=== PATIENT | male | born 1950 | race Caucasian/White ===

== ENCOUNTER 2024-03-26 02:35 | Observation (INO) | payer MEDICARE, OTHER, SELFPAY ==
[2024-03-25 16:30] VITALS: BP 136/79
--- NOTE | 2024-03-25 16:37 | ED.GENMED ---
ED Provider Triage
<Slava Banerjee PA-C - Last Filed: 03/25/24 16:38>
-
Patient seen by provider in Triage?: Seen in Triage
74-year-old male presents for evaluation of right leg swelling. He had ablation done about 2 weeks ago [facility]. He is on Eliquis. He notes persistent swelling to the right groin with hematoma but no increased swelling to the
lower leg.
Patient is stable at triage. Will check basic labs secondary to possible bleeding. Concern for leaking access site at site of ablation versus settling hematoma versus DVT although unlikely because he is anticoagulated ultrasound of groin and leg
ordered
Patient evaluated by medical provider triage. Warrants further assessment
History of Present Illness
<Slava Banerjee PA-C - Last Filed: 03/25/24 16:38>
General
Chief Complaint: DVT/Possible Blood Clot
Time Seen by Provider: 03/25/24 19:26
<Elisabeth Pearce MD - Last Filed: 03/26/24 00:25>
History of Present Illness
History of Present Illness:
Patient is a 74-year-old man with history of A-fib on Eliquis presenting to the emergency department with a hematoma to his groin. Patient states that 2 weeks ago at [facility] Dr. Hanson did a ablation. They accessed through his femoral vein on the
right side. He did have a hematoma shortly after the procedure that was controlled with pressure. He states that when he was discharged she had a few other hematomas. He did have a ultrasound last week that showed hematoma to be 4 cm. He states
that since then the hematoma has been progressing. He also notes that his entire leg has been more swollen. He has been compliant with his Eliquis. Given the ongoing swelling expanding hematoma patient came to the emergency department for further
evaluation
Phy Exam
<Elisabeth Pearce MD - Last Filed: 03/26/24 00:25>
Physical Exam
Physical Exam:
GENERAL: in no acute distress
HEENT: normocephalic, extraocular movements intact, moist oral mucosa
NECK: normal inspection
RESPIRATORY: no respiratory distress
CARDIOVASCULAR: regular rate and rhythm
ABDOMEN/: soft, non-distended, non-tender to palpation, no rebound or guarding
EXTREMITIES: Right groin with hematoma about 7 cm long with no palpable pulsation, right lower extremity with diffuse swelling
NEUROLOGIC: awake and alert, moves all extremities
SKIN: warm
Course
<Slava Banerjee PA-C - Last Filed: 03/25/24 16:38>
Orders/Labs/Results
Orders:
Orders
03/25/24 16:36
US Groin (Imaging Only) RT Urgent
Comment:
Reason For Exam: swelling, recent ablation
Venous Doppler Lwr Ext Rt [US Periph Venous LOWER Ext RT] Urgent
Comment:
Reason For Exam: swelling
03/25/24 16:41
Complete Blood Count/With Diff Urgent
Comprehensive Metabolic Panel Urgent
03/25/24 21:43
CT Lower Ext W/iv Cont Rt Urgent
Reason For Exam: right groin hematoma expanding
Abnormal Lab Results
03/25/24
16:41
RBC 4.04 L 10^6/uL
(4.70-6.10)
Hgb 12.7 L g/dL
(13.0-18.0)
Hct 36.2 L %
(39.0-52.0)
MCH 31.4 H pg
(27.0-31.0)
Absolute Lymphs (auto) 0.8 L 10^3/uL
(1.2-3.4)
Neutrophils % 77.1 H %
(42.2-75.2)
Lymphocytes % 13.9 L %
(20.5-51.1)
Total Protein 6.2 L g/dl
(6.3-8.2)
03/25/24 16:41
03/25/24 16:41
Vital Signs
Initial and Last Documented VS:
Initial Vital Signs
Temp Pulse Resp BP Pulse Ox
98 F 60 19 136/79 100
03/25/24 16:30 03/25/24 16:30 03/25/24 16:30 03/25/24 16:30 03/25/24 16:30
Last Documented Vital Signs
Temp Pulse Resp BP Pulse Ox
98 F 60 19 136/79 100
03/25/24 16:30 03/25/24 16:30 03/25/24 16:30 03/25/24 16:30 03/25/24 20:18
<Elisabeth Pearce MD - Last Filed: 03/26/24 00:25>
Orders/Labs/Results
Orders:
Orders
03/25/24 16:36
US Groin (Imaging Only) RT Urgent
Comment:
Reason For Exam: swelling, recent ablation
Venous Doppler Lwr Ext Rt [US Periph Venous LOWER Ext RT] Urgent
Comment:
Reason For Exam: swelling
03/25/24 16:41
Complete Blood Count/With Diff Urgent
Comprehensive Metabolic Panel Urgent
03/25/24 21:43
CT Lower Ext W/iv Cont Rt Urgent
Reason For Exam: right groin hematoma expanding
Abnormal Lab Results
03/25/24
16:41
RBC 4.04 L 10^6/uL
(4.70-6.10)
Hgb 12.7 L g/dL
(13.0-18.0)
Hct 36.2 L %
(39.0-52.0)
MCH 31.4 H pg
(27.0-31.0)
Absolute Lymphs (auto) 0.8 L 10^3/uL
(1.2-3.4)
Neutrophils % 77.1 H %
(42.2-75.2)
Lymphocytes % 13.9 L %
(20.5-51.1)
Total Protein 6.2 L g/dl
(6.3-8.2)
03/25/24 16:41
03/25/24 16:41
Vital Signs
Initial and Last Documented VS:
Initial Vital Signs
Temp Pulse Resp BP Pulse Ox
98 F 60 19 136/79 100
03/25/24 16:30 03/25/24 16:30 03/25/24 16:30 03/25/24 16:30 03/25/24 16:30
Last Documented Vital Signs
Temp Pulse Resp BP Pulse Ox
98 F 60 19 136/79 100
03/25/24 16:30 03/25/24 16:30 03/25/24 16:30 03/25/24 16:30 03/25/24 20:18
<Elisabeth Pearce MD - Last Filed: 03/26/24 00:25>
MDM/Problems Addressed
Differential Diagnosis Includes:
Patient is a 74-year-old male with history of A-fib on Eliquis status post ablation that was accessed through the right femoral vein presenting to the emergency department with worsening hematoma and right lower extremity swelling. On exam patient
with palpable hematoma with no pulsation. Patient did draw a line where it was a few days ago and is expanding. Patient did obtain ultrasound prior to evaluation which does show hematoma that is about 7 x by 2 x 7 cm. This is larger than the
initial hematoma measured on March 18 per patient's records. After discussion with radiologist will obtain CT pelvis for any active bleeding.
<Elisabeth Pearce MD - Last Filed: 03/26/24 00:25>
*Critical Care Note
Total Time (30-74mins, 75-104mins- exclusive of procedures): Not Applicable
<Elisabeth Pearce MD - Last Filed: 03/26/24 00:25>
Update Note
Update Note:
CT pelvis with no active bleeding. Given patient is on Eliquis and the hematoma is larger than what it was last week after shared decision making we will admit for observation. I did outline the size of the hematoma. Discussed with hospitalist
who accepted patient to their service
ED Attending Note
<Slava Banerjee PA-C - Last Filed: 03/25/24 16:38>
-
Portions of this chart may have been created with voice recognition software.� Occasional wrong word or��sound alike� substitutions may have occurred due to the inherent limitations of voice recognition software.
Discharge Plan
Departure
Patient Disposition: Admit
Date of Disposition: 03/26/24
Time of Disposition: 00:23
Presentation/result/management discussed w/ accepting MD/DO: Hospitalist
Discharge Problem:
Hematoma
Prescriptions:
No Action
Eliquis 5 mg tablet
5 mg PO BID Qty: 60 0RF
metoprolol succinate 25 mg tablet extended release 24 hr
25 mg PO DAILY Qty: 30 0RF
Referrals:
Nestor Lawson MD [Family Provider] -
Interventions
Interventions:
*Risk Screen - Suicide Last Done: 03/25/24 16:30
*General Assessment Last Done: 03/25/24 16:30
*Neglect/Abuse Screening Last Done: 03/25/24 16:30
ED- Cardiac Assessment Last Done: 03/25/24 20:18
ED- Pulmonary Assessment Last Done: 03/25/24 20:18
ED-Peripheral Vascular Assessment Last Done: 03/25/24 20:18
ED-Skin Assessment Last Done: 03/25/24 20:18
Discharge Date and Time
Print Language: JORDANIAN
[2024-03-25 16:56] LABS: % Basophils 0.8 % (0-2); % Immature Granulocytes 0.3 % (0-0.5); % Lymphocytes 13.9 % (20.5-51.1); % Monocytes 6.9 % (1.7-9.3); % Neutrophils 77.1 % (42.2-75.2); Absolute Basophils 0.1 10^3/uL (0-0.2); Absolute Eosinophils 0.1 10^3/uL (0-0.7); Absolute Lymphocytes 0.8 10^3/uL (1.2-3.4); Absolute Monocytes 0.4 10^3/uL (0.1-0.6); Absolute Neutrophils 4.7 10^3/uL (1.4-6.5); Hematocrit 36.2 % (39.0-52.0); Hemoglobin 12.7 g/dL (13.0-18.0); Mean Corp Hgb Conc. 35.1 g/dL (33.0-37.0); Mean Corpuscular Hgb 31.4 pg (27.0-31.0); Mean Corpuscular Volume 89.6 fL (80.0-94.0); Mean Platelet Volume 9.1 fL (7.4-10.4); Nucleated Red Blood Cells % 0 % (-); Platelet Count 217 10^3/uL (130-400); Red Blood Cell Count 4.04 10^6/uL (4.70-6.10); Red Cell Dist. Width 13.7 % (11.5-14.5); White Blood Cell Count 6.1 10^3/uL (4.8-10.8)
[2024-03-25 17:10] LABS: ALT (SGPT) 20 U/L (0-50); AST (SGOT) 26 U/L (17-59); Albumin 4.1 g/dl (3.5-5.0); Alkaline Phosphatase 65 U/L (38-126); Blood Urea Nitrogen 14 mg/dl (9-20); Carbon Dioxide 30 mmol/L (22-30); Chloride 102 mmol/L (98-107); Glucose 94 mg/dl (70-99); Potassium 4.4 mmol/L (3.5-5.1); Sodium 137 mmol/L (135-145); Total Bilirubin 1.2 mg/dl (0.2-1.3); Total Protein 6.2 g/dl (6.3-8.2); eGFR > 60.00
--- NOTE | 2024-03-26 02:25 | HPS.HSE ---
Family Physician
-
Family Physician: Nestor Lawson
Chief Complaint
-
R Groin Pain / Fullness
History of Present Illness
Patient is a 74y M with PMH significant for A-Fib who presents to ED complaining of R groin pain, swelling and fullness. Patient states that he underwent PVI ablation at [facility] on 03/10/[address] Hanson. He states that he experienced some R
groin bleeding / hematoma following the procedure and had pressure device in place for some time post-op. He has since been monitoring this region and has noted persistent / worsening fullness and tenderness in the R groin. He has continued to
take Eliquis for his A-Fib and took his most recent dose this evening.
Patient states that his EP team recommended an US to evaluate the area about one week ago.
He went to a same day center in [place] where he had an US showing two R groin collections measuring 4.5 x 1.4 x 1.7 and 4.5 x 1.8 x 4.4 respectively.
He spoke with the EP team again today and noted his concerns for ongoing fullness and was advised to present to the ED for further evaluation.
He has also noted generalized edema in the entire RLE with some associated stiffness and discomfort. He has ecchymosis in the R groin / suprapubic area and extending into the medial thigh / posterior knee.
His regular [employer] Install[employer] is Dr. Silveira at [facility] in [place].
Medical History
Past Medical History
Past Medical History: Reports Other
Additional Past Medical History:
Paroxysmal Atrial Fibrillation
Past Surgical History: Reports Other
Additional Past Surgical History:
PVI Ablation (03/10/24)
Bilateral GABY
Lumbar Discectomies (x 2)
Social History
Tobacco: Non-smoker
Alcohol: None
Drug: None
Family History
Family History: Not pertinent
Allergies / Home Medications
Allergies reflects when Allergies were last updated in [facility].
Home Medications with original date entered in [facility]
Allergy/Medication List:
Allergies
Allergy/AdvReac Type Severity Reaction Status Date / Time
No Known Allergies Allergy Unverified 02/04/22 16:25
Home Medications
apixaban 5 mg tablet (Eliquis) 5 mg PO BID #60 tabs 02/04/22
cholecalciferol (vitamin D3) 50 mcg (2,000 unit) tablet 50 mcg PO DAILY 03/26/24
metoprolol succinate 25 mg tablet,extended release 24 hr 12.5 mg PO DAILY 03/26/24
Review of Systems
-
History Source: Patient
A 12 point ROS was completed and negative except as noted: Yes
Constitutional: Denies Fever or Chills
Respiratory: Denies Cough or Trouble Breathing
Cardiac: Denies Chest Pain or Palpitations
Abdomen/GI: Denies Abdominal Pain, Nausea, Vomiting or Diarrhea
: Denies Dysuria, Frequency or Bleeding
Musculoskeletal: Reports Edema
Neurological: Denies Dizzy or Headache
Hematologic/Lymphatic: Reports Bruising and Other (Groin swelling / hematoma.)
Physical Exam
Vital Signs
Vital Signs
Temp Pulse Resp BP Pulse Ox
98 F 60 19 136/79 100
03/25/24 16:30 03/25/24 16:30 03/25/24 16:30 03/25/24 16:30 03/25/24 20:18
Physical Exam
General: Other (74y M in no acute distress.)
HEENT: Moist mucous membranes and PERRLA
Respiratory: Clear; No Wheezes, Rales or Rhonchi
Cardiac: S1/S2 and Regular Rhythm; No Murmur
GI: Soft, Non Tender, Non Distended and Normal Bowel Sounds
Musculoskeletal: No Clubbing, No Cyanosis and Other (Trace edema RLE.)
Skin: Other (Hematoma / fullness in the R groin - ovoid in shape. No fluctuance. Mild tenderness. Ecchymosis across suprapubic region and along medial thigh.)
Neuro: AO x 3
Laboratory Results
-
03/25/24 16:41
03/25/24 16:41
Laboratory Results
Total Bilirubin 1.2 mg/dl (0.2-1.3) 03/25/24 16:41
AST 26 U/L (17-59) 03/25/24 16:41
ALT 20 U/L (0-50) 03/25/24 16:41
Alkaline Phosphatase 65 U/L (38-126) 03/25/24 16:41
Impression/Plan
-
A/P: Patient is a 74y M with PMH significant for A-Fib who presents to ED for evaluation of post-procedural R groin hematoma following PVI ablation on 03/10/24 at outside institution.
Right Groin Hematoma
- Observe overnight for further evaluation and treatment.
- Reviewed US report (on patient phone).
- Difficult to compare without images; however - previously described two hematomas now described as 'bilobed' but single hematoma.
- Suspect there is no actual / significant increase in size. No active bleeding appreciated on CT.
- Follow overnight for any increase in size.
- Would hold Eliquis acutely given prolonged / ongoing issues now 2 weeks s/p procedure.
- Will ask Cardiology for their input.
Paroxysmal Atrial Fibrillation
- s/p PVI ablation on 03/10/24.
- Currently has Zio patch in place.
- Follow-up with Cardiology at [facility] / [place] and EP at [facility].
- Continue metoprolol with holding parameters.
DVT Prophylaxis: SCDs. US done today with no evidence of DVT.
Code Status: Full
[2024-03-26 03:30] VITALS: BP 127/70
[2024-03-26 05:55] LABS: Hematocrit 35.6 % (39.0-52.0); Hemoglobin 12.6 g/dL (13.0-18.0); Mean Corp Hgb Conc. 35.4 g/dL (33.0-37.0); Mean Corpuscular Hgb 31.9 pg (27.0-31.0); Mean Corpuscular Volume 90.1 fL (80.0-94.0); Mean Platelet Volume 9.3 fL (7.4-10.4); Platelet Count 209 10^3/uL (130-400); Red Blood Cell Count 3.95 10^6/uL (4.70-6.10); Red Cell Dist. Width 13.6 % (11.5-14.5); White Blood Cell Count 5.3 10^3/uL (4.8-10.8)
[2024-03-26 06:22] LABS: Blood Urea Nitrogen 15 mg/dl (9-20); Calcium 9.9 mg/dl (8.4-10.2); Carbon Dioxide 27 mmol/L (22-30); Chloride 103 mmol/L (98-107); Glucose 84 mg/dl (70-99); Sodium 135 mmol/L (135-145); eGFR > 60.00
[2024-03-26 08:00] VITALS: BP 125/77
[2024-03-26 08:04] VITALS: BMI 23.5
[2024-03-26] MEDS: TOPROL XL PO (09:58)
--- NOTE | 2024-03-26 12:02 | CON.CAR ---
Addendum entered and electronically signed by Emery Loyd MD 03/26/24 14:50:
I saw and examined the patient.
The WEDGER MACHINE's note was reviewed and I agree with the note.
Comment: Discussed case with [facility] monitor Hgb and hematoma.
Original Note:
Consultation
Consultation Request
Date/Time Consultation Requested: 03/26/2024 05:30
Date/Time Consultation Performed: 03/26/2024 11:25
Requesting Provider: Dr. Deng
Performing Provider: KEITH Lorenz for Dr. Loyd
Reason for Consultation: Right groin hematoma
Medical History
-
Chief Complaint: Right thigh swelling
History of Present Illness:
Jose Mott is a 74-year-old male known to his primary b2b appointment setter, Dr. Silveira at [facility] ([place] with paroxysmal atrial fibrillation and dyslipidemia who had a PVI with Dr. Hanson at [facility] 03/10/2024. While he was in
preprocedure holding, he went into atrial fibrillation. He is not sure whether or not he was cardioverted during the procedure. He held a dose of apixaban the morning of the procedure as directed. He has not had any missed doses of apixaban since
the procedure. The patient reports he had a postprocedure right groin hematoma. Initially manual pressure was used then it was transitioned to a sandbag. He had what sounds like a FemoStop for approximately 4 hours. He had an ultrasound prior to
discharge that did not show a hematoma and he was discharged home.
Records have been requested.
Past Medical History
Past Medical History: Arrhythmias (Paroxysmal atrial fibrillation) and Hypercholesterolemia
Past Surgical History: Orthopedic
Social History
Tobacco: Non-Smoker
Alcohol: Occasional (Social, vacation)
Drug: None
Employment: Retired (Software)
Family History
Family History: Reviewed & Not Pertinent
Allergies / Home Medications
Allergy/AdvReac Type Severity Reaction Status Date / Time
No Known Allergies Allergy Unverified 02/04/22 16:25
�Medication �Instructions �Recorded �Confirmed �Type
apixaban 5 mg tablet (Eliquis) 5 mg PO BID #60 tabs 02/04/22 03/26/24 Rx
cholecalciferol (vitamin D3) 50 50 mcg PO DAILY Supplement 03/26/24 03/26/24 History
mcg (2,000 unit) tablet
metoprolol succinate 25 mg 12.5 mg PO DAILY heart rate 03/26/24 03/26/24 History
tablet,extended release 24 hr
Review of Systems
-
History Source: Patient
All other systems: Negative unless noted
Constitutional: No Symptoms
EENT: No Symptoms
Respiratory: No Symptoms
Cardiac: No Symptoms
Abdomen/GI: No Symptoms
: No Symptoms
Musculoskeletal: Joint Swelling and Muscle Stiffness
Skin: No Symptoms
Neurological: No Symptoms
Endocrine: No Symptoms
Hematologic/Lymphatic: Bruising
Physical Exam
Vital Signs
Temp Pulse Resp BP Pulse Ox
97.7 F 60 16 125/77 98
03/26/24 08:00 03/26/24 08:00 03/26/24 08:00 03/26/24 08:00 03/26/24 08:12
Lab Results
03/26/24 05:37
03/26/24 05:37
Physical Exam
General: Well Developed, Well Nourished, No Apparent Distress and Comfortable
HEENT: Normocephalic and Anicteric
Respiratory: Non Labored Respirations
Cardiac: S1/S2 and Regular Rhythm; Negative Peripheral Edema
Breast: Deferred by me
GI: Soft, Non Tender, Non Distended and Normal Bowel Sounds
Rectal: Deferred by Provider
Genito-urinary: No Costovertebral Tender
Musculoskeletal: No Clubbing, No Cyanosis and No Edema
Skin: Warm and Dry
Neuro: AO x 3
Hematologic/Lymphatic: No Lymphadenopathy
Psych: Calm
Impression / Plan
-
IMPRESSION/PLAN: 74M with paroxysmal atrial fibrillation dyslipidemia presented with hematoma after PVI by Dr. Hanson 03/10/2024
Primary Professional Development Manager: Dr. Silveira ([facility])
Right groin hematoma
-Hemoglobin stable at 12.6
-CT: Fluid collection in the right groin measuring 6.4 x 3.1 x 6.7 cm from superior to inferior, bilobed in configuration, anterior to proximal R SFA
-Consult Vascular surgery
Paroxysmal atrial fibrillation
-PVI 03/10/[address] Hanson ([place])
-He may have had DCCV on the date on his ablation, records requested
-Oral Anticoagulation: Apixaban 5mg BID, no missed doses since ablation
-[id number]: score 1 (age 65-74)
Dyslipidemia, not on medical therapy, followed by primary b2b appointment setter
--- NOTE | 2024-03-26 12:02 | W.PN.HOSP.TC ---
Today's Communication/Plan
-
see plan
Assessment / Plan
Assessment / Plan
74y M with PMH significant for A-Fib who presents to ED for evaluation of post-procedural R groin hematoma following PVI ablation on 03/10/24 at outside institution.
Gen: NAD, AAOx3.
Eyes: EOMI, PERRLA, no scleral icterus.
Neck: supple.
CV: RRR, +S1/S2, no m/r/g. R medial groin hematoma with surrounding ecchymoses, no bruits, 2+ R DP pulse
Resp: CTAB, no rales, wheezes, or rhonchi.
Abd: +BS, soft, NT, ND
Skin: No rashes. R medial groin hematoma with surrounding ecchymoses, no bruits, 2+ R DP pulse
Neuro: CN 2-12 intact, non-focal.
Psych: Normal mood and affect.
RLE venous U/S: No evidence of DVT of the right lower extremity.
R groin U/S: Mildly complex fluid collection at the area of concern, probably a hematoma.
CT RLE: Right groin fluid collection
Right Groin Hematoma:
-Hb stable
-c/s vascular
-Eliquis contributed to hematoma and is on hold
Paroxysmal Atrial Fibrillation:
-s/p PVI ablation on 03/10/24.
-Currently has Zio patch in place.
-Follow-up with Cardiology at [facility] / [place] and EP at [place].
-Continue BB
FULL/SCDs
Anticipated Discharge: Within 24 hours
Subjective/Interval History
-
Date of Service: March 26, 2024
No new complaints.
Objective Data
-
Labs:
Laboratory Results
03/26/24
05:37
WBC 5.3
Hgb 12.6 L
Hct 35.6 L
Plt Count 209
Sodium 135
Potassium 4.0
Chloride 103
Carbon Dioxide 27
BUN 15
Creatinine 1.0
Glucose 84
Calcium 9.9
Vital Signs:
Vital Signs
Temp Pulse Resp BP Pulse Ox
97.7 F 60 16 125/77 98
03/26/24 08:00 03/26/24 08:00 03/26/24 08:00 03/26/24 08:00 03/26/24 08:12
--- NOTE | 2024-03-26 13:40 | W.PN.UPDATE ---
Update Note
Progress Note Update
Seen and evaluated with TEVIN Epps. Full consultation to follow. Briefly 74-year-old male status post recent EP ablation procedure done at the [facility] performed about 15 days ago. Transvenous access through the right groin. Per
patient and his , it was complicated by postprocedural hematoma in the right groin. Required additional pressure to be placed, manual and otherwise (sandbag). Noted vigorous/hard manual compression in the right groin. He underwent ultrasound
the following morning and per their report did not show any significant hematoma or findings. Therefore was discharged home. Patient now returns with worsened complaints of swelling and discomfort in his right thigh and calf. He still has some
discomfort in his right groin, but he is not really bothered by that and he notes that that has not changed. His biggest complaint was swelling and tightness in his right leg and when he tries to flex his knee it bothers him some. Denies any prior
lower extremity revascularization procedures. No history of DVTs.
On exam/he is awake and alert. Head is normocephalic and atraumatic. Eyes are anicteric. Neck is soft without jugular venous distention. Breathing is unlabored. Abdomen is soft. Right groin with some ecchymosis. There is a hematoma palpable
in the groin but it is relatively small and soft. No pulsatile mass. No palpable thrill. He has bruising/ecchymosis that extends from the groin down medially on the thigh towards the knee. Tracks along either the sartorius muscle or the
saphenous vein bed. He has tenderness when I squeeze that area (unclear from squeezing the sartorius muscle or the saphenous vein bed). However it is soft. There is no pulsatile mass anywhere along that course. His thigh and calf are soft. No
significant edema in the thigh. Mild edema in the calf but it is very soft. No tenderness or tightness in the calf.
Ultrasound reviewed. No evidence of pseudoaneurysm or AV fistula.
CT scan reviewed. To my interpretation of the images there is a hematoma in the right groin as measured by the radiologist report. There is no evidence of active extravasation. It almost looks like a bilobed hematoma with the greater saphenous
vein in between the lobes and I cannot tell, but there appears to be some hematoma around the saphenous vein a few centimeters beyond its origin.
Plan/ Hematoma right groin status post EP ablation procedure. No evidence of pseudoaneurysm or AV fistula. I think likely this is just hematoma after his procedure and likely tracked along the course of the saphenous vein. (Or alternatively the
sartorius muscle bed). May have been avulsed branch of the saphenous vein based on CT scan appearance. Regardless nothing invasive for me to do here. Recommend warm compresses to try to soften the hematoma and muscle discomfort. Compressive
wraps as needed (Samy bandage versus compression stockings) to right lower extremity. Follow-up with EP radar repairer regarding anticoagulation and other follow-up needs.
--- NOTE | 2024-03-26 14:11 | CON.VAS ---
Consultation
Consultation Request
Date/Time Consultation Performed: 03/26/24 1340
Requesting Provider: Hospitalist
Performing Provider: KEITH Vicente for Kain Guzman MD
Reason for Consultation: Right groin hematoma
Medical History
-
Chief Complaint: Right lower extremity edema
History of Present Illness:
This is a 74-year-old male status post recent EP ablation procedure done at the [facility] performed about 15 days ago with significant past medical history of hypercholesterolemia and atrial fibrillation, who reported to ED with on
going right groin hematoma and RLE edema. Per patient and his , it was complicated by postprocedural hematoma in the right groin. Required additional pressure to be placed, manual and otherwise (sandbag). Noted vigorous/hard manual
compression in the right groin. He underwent ultrasound the following morning and per their report did not show any significant hematoma or findings. Therefore was discharged home. Patient now returns with worsened complaints of swelling and
discomfort in his right thigh and calf. He still has some discomfort in his right groin, but he is not really bothered by that and he notes that that has not changed. His biggest complaint was swelling and tightness in his right leg and when he
tries to flex his knee it bothers him some. Denies any prior lower extremity revascularization procedures. No history of DVTs.
Past Medical History
Past Medical History: Arrhythmias (Paroxysmal atrial fibrillation) and Hypercholesterolemia
Past Surgical History: Cardiac (PVI 03/10/24 [facility] Dr. Hanson ) and Orthopedic
Social History
Tobacco: Non-Smoker
Alcohol: Occasional
Drug: None
Personal:
Living: With Family
Allergies / Home Medications
Allergy/AdvReac Type Severity Reaction Status Date / Time
No Known Allergies Allergy Unverified 02/04/22 16:25
�Medication �Instructions �Recorded �Confirmed �Type
apixaban 5 mg tablet (Eliquis) 5 mg PO BID #60 tabs 02/04/22 03/26/24 Rx
cholecalciferol (vitamin D3) 50 50 mcg PO DAILY Supplement 03/26/24 03/26/24 History
mcg (2,000 unit) tablet
metoprolol succinate 25 mg 12.5 mg PO DAILY heart rate 03/26/24 03/26/24 History
tablet,extended release 24 hr
Review of Systems
-
Constitutional: Reports No Symptoms
EENT: Reports No Symptoms
Respiratory: Reports No Symptoms
Cardiac: Reports No Symptoms
Vascular: Denies Leg Pain / Claudication, Numbness or Tingling
Abdomen/GI: Reports No Symptoms
: Reports No Symptoms
Musculoskeletal: Reports Edema (Worsening and ongoing right lower extremity edema)
Skin: Reports Other (Ecchymosis and hematoma in right groin following PVI procedure)
Neurological: Reports No Symptoms
Endocrine: Reports No Symptoms
Physical Exam
Vital Signs
Temp Pulse Resp BP Pulse Ox
97.7 F 60 16 125/77 98
03/26/24 08:00 03/26/24 08:00 03/26/24 08:00 03/26/24 08:00 03/26/24 08:12
Lab Results
03/26/24 05:37
03/26/24 05:37
Physical Exam
General: No Apparent Distress and Comfortable
HEENT: Normocephalic, Anicteric and Atraumatic
Respiratory: Non Labored Respirations
Cardiac: Negative JVD
GI: Soft, Non Tender and Non Distended
Musculoskeletal: Edema
Skin: Other (Right groin with some ecchymosis. There is a hematoma palpable in the groin but it is relatively small and soft. No pulsatile mass. No palpable thrill. He has bruising/ecchymosis that extends from the groin down medially on the
thigh towards the knee. Tracks along either the sartorius muscle or)
Neuro: AO x 3 and Nonfocal/Grossly Intact
Pulses: Bilateral Femoral: +2, Bilateral Dorsalis Pedis: +2 and Bilateral Posterior Tibial: +2
Assessment / Plan
-
Assessment: 74-year-old male with right groin hematoma status post EP ablation procedure.
Plan:
Ultrasound and CT scan reviewed with attending Dr. Kain Guzman. No evidence of pseudoaneurysm or AV fistula. There is no evidence of active extravasation on CT.
Suspect hematoma after his procedure likely tracked along the course of the saphenous vein. (Or alternatively the sartorius muscle bed). May have been avulsed branch of the saphenous vein based on CT scan appearance. Regardless nothing invasive
or surgical required. Recommend warm compresses to try to soften the hematoma and muscle discomfort. Compressive wraps as needed (Samy bandage versus compression stockings) to right lower extremity. Follow-up with EP apartment hotel manager regarding
anticoagulation and other follow-up needs.
[2024-03-26 16:30] VITALS: BP 126/67
[2024-03-26 17:06] VITALS: BMI 23.1
[2024-03-26] MEDS: ELIQUIS 5 MG PO (20:52)
[2024-03-26 23:34] VITALS: BP 116/65
[2024-03-27 06:00] VITALS: BMI 23.0
[2024-03-27 07:00] VITALS: BP 128/72
[2024-03-27 07:20] LABS: Hematocrit 34.1 % (39.0-52.0); Mean Corp Hgb Conc. 35.2 g/dL (33.0-37.0); Mean Corpuscular Hgb 31.2 pg (27.0-31.0); Mean Corpuscular Volume 88.6 fL (80.0-94.0); Mean Platelet Volume 9.2 fL (7.4-10.4); Platelet Count 175 10^3/uL (130-400); Red Blood Cell Count 3.85 10^6/uL (4.70-6.10); Red Cell Dist. Width 13.5 % (11.5-14.5); White Blood Cell Count 5.2 10^3/uL (4.8-10.8)
[2024-03-27 07:43] LABS: Blood Urea Nitrogen 21 mg/dl (9-20); Calcium 9.7 mg/dl (8.4-10.2); Carbon Dioxide 29 mmol/L (22-30); Chloride 104 mmol/L (98-107); Estimated Creatinine Clearance 55 ml/min; Glucose 84 mg/dl (70-99); Potassium 4.2 mmol/L (3.5-5.1); Sodium 137 mmol/L (135-145); eGFR > 60.00
[2024-03-27] MEDS: TOPROL XL 12.5 MG PO (08:55)
[2024-03-27] MEDS: ELIQUIS 5 MG PO (08:56)
--- NOTE | 2024-03-27 10:43 | W.PN.HOSP.TC ---
Today's Communication/Plan
-
d/c
Assessment / Plan
Assessment / Plan
74y M with PMH significant for A-Fib who presents to ED for evaluation of post-procedural R groin hematoma following PVI ablation on 03/10/24 at outside institution.
Gen: remains NAD, AAOx3.
Eyes: EOMI, PERRLA, no scleral icterus.
Neck: supple.
CV: RRR, +S1/S2, no m/r/g. R medial groin hematoma with surrounding ecchymoses (Unchanged from yesterday), 2+ R DP pulse
Resp: CTAB anteriorly, no rales, wheezes, or rhonchi.
Skin: No rashes. R medial groin hematoma with surrounding ecchymoses (Unchanged from yesterday), 2+ R DP pulse
Neuro: CN 2-12 intact, non-focal.
Psych: Normal mood and affect.
RLE venous U/S: No evidence of DVT of the right lower extremity.
R groin U/S: Mildly complex fluid collection at the area of concern, probably a hematoma.
CT RLE: Right groin fluid collection
Right Groin Hematoma:
-Hb stable
-vascular saw in c/s
-Eliquis contributed to hematoma and was on hold, now restarted
Paroxysmal Atrial Fibrillation:
-s/p PVI ablation on 03/10/24.
-Currently has Zio patch in place.
-Follow-up with Cardiology at [facility] and EP at [facility].
-Continue BB, Eliquis restarted
FULL/SCDs
Case discussed with Dr. Loyd, pt medically cleared for d/c.
Total time spent on d/c = 31 min. This included today's physical exam, progress note, review of laboratory and diagnostic data, preparation of discharge documents and prescriptions, and discussions about the pt's hospital course and discharge plan
with the patient and other medical representative involved in the patient's care.
Anticipated Discharge: Today
Subjective/Interval History
-
Date of Service: March 27, 2024
Objective Data
-
Labs:
Laboratory Results
03/27/24
06:38
WBC 5.2
Hgb 12.0 L
Hct 34.1 L
Plt Count 175
Sodium 137
Potassium 4.2
Chloride 104
Carbon Dioxide 29
BUN 21 H
Creatinine 1.2
Glucose 84
Calcium 9.7
Vital Signs:
Vital Signs
Temp Pulse Resp BP Pulse Ox
98.1 F 66 19 128/72 97
03/27/24 07:00 03/27/24 07:00 03/27/24 07:00 03/27/24 07:00 03/27/24 07:00
I&O
03/26/24 03/27/24 03/28/24
06:59 06:59 06:59
Intake Total 720 / 720
Balance 720 / 720
--- NOTE | 2024-03-27 13:12 | CM ---
Patient seen at bedside.
IA completed. RODRÍGUEZ form explained & signed. In chart.
Lives with in a 2 story home, 1 step to enter, flight to second floor.
PLOF: independent
DME: janel beaulieu
Denies HH/Rehab
PCP: Emery E[facility]
Pharmacy: [facility]
PLAN: home, no needs.
daughter to transport
--- NOTE | 2024-03-27 13:40 | W.PN.CD ---
Today's Communication / Plan
-
Cont SUDHAKAR Jordan on Thursday 03/29 to be f/u by Dr Hanson office
We will sign off please call with questions/concerns.
Impression / Plan
-
IMPRESSION/PLAN: 74M with paroxysmal atrial fibrillation dyslipidemia presented with hematoma after PVI by Dr. Hanson 03/10/2024
[facility] Mail Processor[facility]
Right groin hematoma
-Hemoglobin 12.0 today
-CT: Fluid collection in the right groin measuring 6.4 x 3.1 x 6.7 cm from superior to inferior, bilobed in configuration, anterior to proximal R SFA
-Consult Vascular surgery
- Cont Juilan CBC on Thursday 03/29 to be f/u by Dr Hanson office
Paroxysmal atrial fibrillation
-PVI 03/10/[address] Hanson ([place])
-He may have had DCCV on the date on his ablation, records requested
-Oral Anticoagulation: Apixaban 5mg BID, no missed doses since ablation
-[id number]: score 1 (age 65-74)
Dyslipidemia, not on medical therapy, followed by primary contracting specialist
Physical Exam
Vital Signs/Labs
Vital Signs
Temp Pulse Resp BP Pulse Ox
98.1 F 66 19 128/72 97
03/27/24 07:00 03/27/24 07:00 03/27/24 07:00 03/27/24 07:00 03/27/24 07:00
03/26/24 03/27/24 03/28/24
06:59 06:59 06:59
Actual Weight 155 lb 7 oz
03/27/24 06:38
03/27/24 06:38
Physical Exam
Constitutional: No acute distress and Comfortable
EENT: Anicteric
Cardiovascular: Rhythm & rate is regular and Pedal edema is absent
Respiratory: Respiratory effort normal and Lungs clear to auscul.
GI: Soft
Neuro/Psych: AO x 3
Data Reviewed
-
Date of Service: March 27, 2024
EKG: Tracing Personally Visualized and interpreted (sr)
Labs: Labs Reviewed by me
[2024-03-27 14:25] VITALS: BP 136/76
--- NOTE | 2024-03-27 15:21 | W.DCSUMMARY ---
Discharge Summary
Discharge Data
Date of Admission: 03/26/24
Date of Discharge: 03/27/24
-
Pending Results: No
Hospital Course
Primary diagnoses:
Right groin hematoma after PVI ablation on 03/10/24
Secondary diagnoses:
Paroxysmal Atrial Fibrillation s/p PVI ablation on 03/10/24
Hyperlipidemia
Consults:
Cardiology
Vascular surgery
Imaging:
RLE venous U/S: No evidence of DVT of the right lower extremity.
R groin U/S: Mildly complex fluid collection at the area of concern, probably a hematoma.
CT RLE: Right groin fluid collection
Hospital course 74-year-old male who presented with with a postprocedure right groin hematoma as outlined in H&P done admission. Patient was monitored in the hospital. His hemoglobin remained stable. He was seen consultation by cardiology and
vascular surgery. Initially the patient's Eliquis was held but was restarted. Imaging above. Vascular surgery did not recommend any inpatient procedures. He was discharged in medically stable condition.
Discharge Plan
-
Patient Disposition: Home (Routine Discharge)
Discharge Diagnosis/Procedures: Right groin postprocedure hematoma
Condition: Good
Diet: Low Cholesterol and Low Sodium
Activity: As tolerated and No strenuous activity
Driving Restrictions: As prior to admission
Blood Work: CBC in 2 days, prescription from PCP
Referrals:
Nestor Lawson MD [Family Provider] - in one to two days
Prescriptions:
Continued
Eliquis 5 mg tablet
5 mg PO BID Qty: 60 0RF
cholecalciferol (vitamin D3) 50 mcg (2,000 unit) Tablet
50 mcg PO DAILY
metoprolol succinate 25 mg tablet extended release 24 hr
12.5 mg PO DAILY
Discharge Orders:
Discharge Patient (As Directed); Ordered 03/27/24
Ordered By: Ceferino Justice
Discharge Date and Time
Print Language: NAURUAN
== END 2024-03-27 15:46 | disposition home or self-care (01) ==
LOC: 4 WEST ACU 02:35
PROVIDERS: Physician Assistant; ADMITTING PHYSICIAN Hospitalist; ATTENDING PHYSICIAN Internal Medicine; CONSULT PHYSICIAN Surgery Vascular Surgery; EMERGENCY PHYSICIAN Student in an Organized Health Care Education/Training Program; FAMILY PHYSICIAN Family Medicine; OTHER PHYSICIAN Internal Medicine Cardiovascular Disease
DX: L76.32 Postprocedural hematoma of skin and subcutaneous tissue following other procedure (principal); Y84.0 Cardiac catheterization as the cause of abnormal reaction of the patient, or of later complication, without mention of misadventure at the time of the procedure; Y71.1 Therapeutic (nonsurgical) and rehabilitative cardiovascular devices associated with adverse incidents; Y92.9 Unspecified place or not applicable; M79.89 Other specified soft tissue disorders; I48.0 Paroxysmal atrial fibrillation; E78.00 Pure hypercholesterolemia, unspecified; Z79.01 Long term (current) use of anticoagulants; Z96.641 Presence of right artificial hip joint
CPT/HCPCS: 73701; 76882; 80048; 80053; 85025; 85027; 93005; 93971; 99285; G0378; Q9967